=== PATIENT | male | born 1965 | race Caucasian/White ===

== ENCOUNTER 2018-04-24 22:58 | Emergency (ER) | payer OTHER ==
--- NOTE | 2018-04-24 23:50 | EDPHY ---
H & P Stated Complaint: TREMORS WHILE LYING DOWN/POS REAX TO ANESTHESIA SX Time Seen by Provider: 04/24/18 23:12 HPI/ROS: HPI The patient presents with shaking and jerking throughout his body which he has been feeling for the last 1 day after undergoing right hip arthroscopy at [facility]. He had both general and spinal anesthesia. His case lasted for 6-7 hours. He received Ancef. He is discharged today and has prescriptions for [place], aspirin, naproxen, Protonix and Robaxin which she is taking currently. He says the jerking and shaking have been getting progressively worse. He is unable to sleep because of this. He says whenever he is about to fall asleep or is resting he feels this jerking throughout his body. He does not lose consciousness during this. He has no prior history of similar. He is not taking any other new medication.. REVIEW OF SYSTEMS Constitutional: No fever, no chills. Eyes: No discharge. ENT: No sore throat. Cardiovascular: No chest pain, no palpitations. Respiratory: No cough, no shortness of breath. Gastrointestinal: No abdominal pain, no vomiting. Genitourinary: No hematuria. Musculoskeletal: No back pain. Skin: No rashes. Neurological: No headache. PMHx: Postoperative day 1 after right hip arthroscopic knee with femoral/ acetabular osteoblastic and labral reconstruction with microfracture by Dr. Wicho Faustin at [facility] Hx: FHx: PHYSICAL General Appearance: Alert, no distress Eyes: Pupils equal and round no pallor or injection ENT, Mouth: Mucous membranes moist Respiratory: There are no retractions, lungs are clear to auscultation Cardiovascular: Regular rate and rhythm Gastrointestinal: Abdomen is soft and non-tender, no masses, bowel sounds normal Neurological: A&O, moves all extremities Skin: Warm and dry, no rashes Musculoskeletal: Neck is supple non tender Extremities: symmetrical, full range of motion Psychiatric: Patient is oriented X 3, there is no agitation Source: Patient Exam Limitations: No limitations - Personal History Current Tetanus Diphtheria and Acellular Pertussis (TDAP): Unsure - Medical/Surgical History Hx Asthma: No Hx Chronic Respiratory Disease: No Hx Diabetes: No Hx Cardiac Disease: No Hx Renal Disease: No Hx Cirrhosis: No Hx Alcoholism: No Hx HIV/AIDS: No Hx Splenectomy or Spleen Trauma: No Other PMH: R HIP SX, BACK SX, HAND SX, CLAVICLE SX - Social History Smoking Status: Never smoked Constitutional: Initial Vital Signs Temperature (C) 37.4 C 04/24/18 23:05 Heart Rate 87 04/24/18 23:05 Respiratory Rate 16 04/24/18 23:05 Blood Pressure 104/78 04/24/18 23:05 O2 Sat (%) 92 04/24/18 23:05 O2 Delivery Mode Room Air Allergies/Adverse Reactions: No Known Allergies Allergy (Unverified 04/24/18 23:04) Home Medications: Medication Instructions Recorded Ambien 04/24/18 Celexa 04/24/18 Temazepam 04/24/18 Wellbutrin 100mg (*) 04/24/18 Medical Decision Making Differential Diagnosis: This is a 52-year-old male who was 1 day postoperative from hip arthroscopy performed at outside hospital requiring general and spinal anesthesia now with progressive myoclonus by history. He has no prior history of myoclonus. Partial seizure is a consideration, however patient describes bilateral symptoms while he is fully awake and alert, so this would be unusual. Plan to check electrolytes. I suspect his symptoms are related to medications, either anesthetics or opioids. However, he should be improving at this point. Labs were checked and did reveal low normal magnesium. Other electrolytes were normal. I have given him a dose of magnesium here with hopes that this may improve his symptoms. I have given him a short course of Valium to take as needed if he is experiencing myoclonus that is presenting him from sleeping. I have explained that if his symptoms continue, he needs to follow up with his primary orthopedist for further evaluation. He is happy with this plan and will be discharged home. - Data Points Laboratory Results: Laboratory Results 04/24/18 23:58 04/24/18 23:58 Sodium 135 mEq/L mEq/L (135-145) Potassium 3.9 mEq/L mEq/L (3.3-5.0) Chloride 103 mEq/L mEq/L (97-110) Carbon Dioxide 28 mEq/l mEq/l (22-31) Anion Gap 4 mEq/L L mEq/L (8-16) BUN 13 mg/dL mg/dL (7-23) Creatinine 0.9 mg/dL mg/dL (0.7-1.3) Estimated GFR > 60 Glucose 114 mg/dL H mg/dL (70-100) Calcium 8.9 mg/dL mg/dL (8.5-10.4) Phosphorus 3.3 mg/dL mg/dL (2.5-4.5) Magnesium 1.8 mg/dL mg/dL (1.6-2.3) Medications Given: Discontinued Medications Diazepam (Valium 5 Mg Prepack#4) 1 btl TAKEHOME EDNOW ONE Stop: 04/25/18 00:45 Last Admin: 04/25/18 01:12 Dose: 1 btl Magnesium Sulfate/Dextrose (Magnesium Sulf 1 Gm (Premix)) 100 mls @ 100 mls/hr IV ONCE ONE Stop: 04/25/18 01:43 Last Admin: 04/25/18 00:51 Dose: 100 mls Departure - Departure Disposition: Home, Routine, Self-Care Clinical Impression: Myoclonic jerking, Status post arthroscopy of hip Condition: Good Instructions: Diazepam (By mouth), Tremors (ED) Additional Instructions: I suspect what you are experiencing is something called myoclonic jerks. This is usually related to anesthesia and occasionally due to opiate pain medications such as morphine. I recommend that you drink plenty of fluids. I have given you several tabs of Valium 5 mg. I recommend you take Valium 2.5 mg every 4-6 hours as needed for the jerking. You should not take this in combination with any other sedating medications including the medications you take for sleep or pain medication. If you continue to have symptoms, I recommend that you follow up with your orthopedic doctor at [facility]. You should return to the emergency department if you are worse in any way. Referrals: Umm Hassan MD [Primary Care Provider] - As per Instructions
[2018-04-25] MEDS ORDERED: MAGNESIUM SULF 1 GM/DEXTROSE 100 ML IV ONE (00:44)
[2018-04-25] MEDS ORDERED: DIAZEPAM 5 MG PREPACK#4 BTL TAKEHOME ONE (00:44)
[2018-04-25 01:46] VITALS: BP 123/77
== END 2018-04-25 01:48 | disposition home or self-care (01) ==
DX: G25.3 Myoclonus (principal); T41.205A Adverse effect of unspecified general anesthetics, initial encounter
CPT/HCPCS: 96365; J3475